=== PATIENT | female | born 2000 | race Caucasian/White ===

== ENCOUNTER 2021-07-29 21:37 | Emergency (ER) | payer MEDICAID ==
[~2021-07-29] VITALS: Ht 152.4 cm; Wt 54.4 kg
[2021-07-29] MEDS ORDERED: CEFTRIAXONE 500 MG VIAL IM ONE (22:00)
[2021-07-29] MEDS ORDERED: DOXYCYCLINE HYCLATE (100 MG) 100 MG TABLET PO ONE (22:00)
--- NOTE | 2021-07-29 22:00 | NUR ---
BIBS FOR C/O POSSIBLE STD. HER PARTNER WAS TESTED + FOR SYPHILIS +DYSURIA. PT A/OX4. TOLERATING R/A WELL WITH NO SOB
--- NOTE | 2021-07-29 22:01 | NUR ---
URINE COLLECTED AND SENT TO LAB
--- NOTE | 2021-07-29 22:03 | NUR ---
LAW VARGAS AT PT'S BEDSIDE
[2021-07-29] MEDS ORDERED: DOXY-326 PO ×2 (22:08→22:10)
[2021-07-29] MEDS ORDERED: CEFTRIAXONE 500 MG VIAL ONE (22:23)
[2021-07-29] MEDS ORDERED: DOXYCYCLINE HYCLATE (100 MG) 100 MG TABLET ONE (22:24)
[2021-07-29] MEDS ORDERED: LIDOCAINE /MPF 1% VIAL 5 ML VIAL ONE (22:25)
--- NOTE | 2021-07-29 22:32 | NUR ---
Patient discharged to home in stable condition. RX Written and verbal after care instructions given. Patient verbalizes understanding of instruction. PT ambulatory with a steady gait.
[2021-07-29 22:33] VITALS: BP 140/87
[2021-07-29 22:36] LABS: BILIRUBIN,URINE SMALL (NEGATIVE); COLOR,URINE YELLOW (YELLOW); LEUKOCYTE ESTERASE ,URINE NEGATIVE (NEGATIVE); NITRITE, URINE NEGATIVE (NEGATIVE); PH,URINE 5.5 (5.0-8.0); PROTEIN,URINE NEGATIVE (NEGATIVE); UGLUCOSE NEGATIVE (NEGATIVE); UROBILINOGEN,URINE 0.2 EU/dL (0.2)
== END 2021-07-29 22:34 | disposition home or self-care (01) ==
LOC: ER 21:40
DX: R30.0 Dysuria (principal); Z79.899 Other long term (current) drug therapy
CPT/HCPCS: 81003; 84703; 87491; 87591; 96372; 99283; J0696; J3490

== ENCOUNTER 2022-02-26 09:12 | Emergency (ER) | payer MEDICAID ==
[~2022-02-26] VITALS: Ht 157.5 cm; Wt 53.5 kg
[~2022-02-26 09:12] MED LIST: DOXY-326 PO
--- NOTE | 2022-02-26 09:24 | NUR ---
BIBS C/O NAUSEA, VOMITING, AND DIARRHEA X3WEEK AND NOTICE BLACK STOOL. PT DENIES ANY PAIN AT THIS TIME. VITALS ARE WITHIN NORMAL LIMITS. CHANGED INTO GOWN. AWAITNG MD ORDERS.
--- NOTE | 2022-02-26 09:46 | NUR ---
IV ESTABLISHED R AC 20G. LABS DRAWN AND COLLECTED AT BEDSIDE
[2022-02-26 10:02] LABS: BASOPHILS % (AUTO) 0.3 % (0.0-2.0); EOSINOPHILS % (AUTO) 1.7 % (0.0-6.0); HEMATOCRIT 42 % (33-45); LYMPHOCYTES # (AUTO) 1.7 K/uL (0.8-4.8); LYMPHOCYTES % (AUTO) 32.1 % (20.0-44.0); MEAN CORPUSCULAR HGB CONC 34 g/dl (31.0-36.0); MEAN CORPUSCULAR VOLUME 87 fL (82-100); MONOCYTES # (AUTO) 0.4 K/uL (0.1-1.30); MONOCYTES % (AUTO) 8.1 % (2.0-12.0); NEUTROPHILS # (AUTO) 3.1 K/uL (1.8-8.9); NEUTROPHILS % (AUTO) 57.8 % (43.0-81.0); PLATELET COUNT (AUTO) 313 K/uL (150-450); WHITE BLOOD COUNT (AUTO) 5.3 K/uL (4.3-11.0)
--- NOTE | 2022-02-26 10:03 | NUR ---
URINE COLLECTED AND SENT
[2022-02-26 10:25] LABS: CALCIUM, SERUM 9.3 mg/dL (8.5-10.1); CREATININE 0.7 mg/dL (0.6-1.3); POTASSIUM 3.7 mmol/L (3.5-5.1)
[2022-02-26 10:31] LABS: BILIRUBIN,DIRECT 0.2 mg/dL (0.0-0.2); BILIRUBIN,TOTAL 0.8 mg/dL (0.2-1.0); TOTAL PROTEIN, SERUM 8.1 g/dL (6.4-8.2)
[2022-02-26 11:34] LABS: BILIRUBIN,URINE NEGATIVE (NEGATIVE); COLOR,URINE YELLOW (YELLOW); LEUKOCYTE ESTERASE ,URINE NEGATIVE (NEGATIVE); NITRITE, URINE NEGATIVE (NEGATIVE); PROTEIN,URINE NEGATIVE (NEGATIVE); UGLUCOSE NEGATIVE (NEGATIVE); UROBILINOGEN,URINE 0.2 EU/dL (0.2)
[2022-02-26] MEDS ORDERED: ONDA4TAB5 PO (12:11)
--- NOTE | 2022-02-26 12:23 | NUR ---
IV removed. Catheter intact and site benign. Pressure and 4x4 applied to site. No bleeding noted.
[2022-02-26 12:24] VITALS: BP 120/76
--- NOTE | 2022-02-26 12:24 | NUR ---
Patient discharged to home in stable condition. Written and verbal after care instructions given. Patient verbalizes understanding of instruction.
[2022-02-26 12:37] LABS: BACTERIA,URINE Moderate /HPF (None Seen); RBC,URINE NONE SEEN /HPF (0-2); SQUAMOUS EPITHELIAL CELL,UR Moderate /HPF (None Seen); WBC,URINE 0-2 /HPF (0-3)
== END 2022-02-26 12:25 | disposition home or self-care (01) ==
LOC: ER 09:15
DX: R11.2 Nausea with vomiting, unspecified (principal); R19.7 Diarrhea, unspecified; Z98.890 Other specified postprocedural states; Z79.899 Other long term (current) drug therapy
CPT/HCPCS: 36415; 80048-TC; 80076-TC; 81001; 83690-TC; 84703-TC; 85025-TC; 87086-TC

== ENCOUNTER 2022-04-15 16:41 | Emergency (ER) | payer MEDICAID ==
[~2022-04-15] VITALS: Ht 152.4 cm; Wt 54.4 kg
[~2022-04-15 16:41] MED LIST changes: +ONDA4TAB5 PO
[2022-04-15 16:53] VITALS: BP 124/64
--- NOTE | 2022-04-15 16:53 | NUR ---
BIBS C/O PERSISTENT HEADACHE SINCE SHE HIT THE BACK OF HER HEAD AGAINST THE CORNER OF A COUCH 2 DAYS AGO
[2022-04-15] MEDS ORDERED: KETOROLAC TROMETHAMINE INJ 60 MG/2 ML VIAL IM ONE (17:30)
[2022-04-15] MEDS ORDERED: ACETAMINOPHEN 325 MG TABLET PO ONE (17:30)
[2022-04-15] MEDS ORDERED: KETOROLAC TROMETHAMINE INJ 30 MG/ML VIAL ONE (17:42)
[2022-04-15] MEDS ORDERED: ACETAMINOPHEN ES 500 MG TABLET ONE (17:42)
[2022-04-15] MEDS ORDERED: KETO10TA2 PO (18:11)
--- NOTE | 2022-04-15 18:30 | NUR ---
Patient discharged to home in stable condition. Written and verbal after care instructions given. Patient verbalizes understanding of instruction.
== END 2022-04-15 18:57 | disposition home or self-care (01) ==
LOC: ER 16:43
DX: G43.909 Migraine, unspecified, not intractable, without status migrainosus (principal); S09.90XA Unspecified injury of head, initial encounter; Z79.899 Other long term (current) drug therapy; W22.8XXA Striking against or struck by other objects, initial encounter; Y93.89 Activity, other specified; Y92.89 Other specified places as the place of occurrence of the external cause; Y99.8 Other external cause status
CPT/HCPCS: 99283; 96372; J1885

== ENCOUNTER 2022-08-13 12:57 | Emergency (ER) | payer MEDICAID ==
[~2022-08-13] VITALS: Ht 152.4 cm; Wt 72.6 kg
[~2022-08-13 12:57] MED LIST changes: +KETO10TA2 PO
[2022-08-13 13:05] VITALS: BP 123/75
--- NOTE | 2022-08-13 14:23 | NUR ---
PT WAS TRIAGED AWAITING BED AVAILABILITY, LEFT W/OUT BEING SEEN BY ERMD.
== END 2022-08-13 14:30 | disposition left against medical advice (07) ==
LOC: ER 12:58
DX: Z53.21 Procedure and treatment not carried out due to patient leaving prior to being seen by health care provider (principal); R11.2 Nausea with vomiting, unspecified

== ENCOUNTER 2022-10-19 07:45 | Emergency (ER) | payer MEDICAID, OTHER ==
[~2022-10-19] VITALS: Ht 152.4 cm; Wt 53.5 kg
[2022-10-19 08:08] VITALS: BP 119/74
[2022-10-19] MEDS ORDERED: IV NS 0.9% 1,000 ML IV ONE (09:00)
[2022-10-19] MEDS ORDERED: diphenhydrAMINE HCL 50 MG/ML VIAL IV ONE (09:00)
[2022-10-19] MEDS ORDERED: KETOROLAC TROMETHAMINE INJ 30 MG/ML VIAL IV ONE (09:00)
[2022-10-19] MEDS ORDERED: METOCLOPRAMIDE HCL 10 MG/2 ML VIAL IV ONE (09:00)
--- NOTE | 2022-10-19 09:16 | NUR ---
Patient does not wish to proceed with medical care recommended by Dr. Odell. Patient given information related to possible complications, up to and including , which could occur as a result of leaving the hospital at this time. Patient verbalizes understanding of risks involved due to leaving against medical advice. Patient refused to signed AMA form.
== END 2022-10-19 09:17 | disposition left against medical advice (07) ==
LOC: ER 07:54
DX: R51.9 Headache, unspecified (principal); Z79.899 Other long term (current) drug therapy

== ENCOUNTER 2023-09-25 15:04 | Emergency (ER) | payer OTHER ==
[~2023-09-25] VITALS: Ht 152.4 cm; Wt 59.0 kg
[2023-09-25 16:02] VITALS: BP 149/73; TEMP 98.6
[2023-09-25] MEDS ORDERED: HYDR-500 PO (16:51)
[2023-09-25] MEDS ORDERED: IBUPROFEN 600 MG TABLET ONE (16:58)
[2023-09-25] MEDS: IBUPROFEN 600 MG TABLET PO ONE (17:01)
[2023-09-25 17:06] VITALS: O2SAT 99
== END 2023-09-25 17:08 | disposition home or self-care (01) ==
LOC: ER 15:25
DX: H01.136 Eczematous dermatitis of left eye, unspecified eyelid (principal); H01.133 Eczematous dermatitis of right eye, unspecified eyelid; G43.909 Migraine, unspecified, not intractable, without status migrainosus; Z73.3 Stress, not elsewhere classified; F41.8 Other specified anxiety disorders

== ENCOUNTER → 2023-10-24 | Emergency (ER) | payer OTHER ==
[~2023-10-24] VITALS: Ht 154.9 cm; Wt 62.6 kg
[~2023-10-24] MED LIST changes: +AMOX500C2 PO; +HYDR-500 PO
[2023-10-24 09:04] VITALS: BP 120/81; TEMP 98.8; O2SAT 100
== END | disposition home or self-care (01) ==
LOC: ER 09:12
DX: H66.91 Otitis media, unspecified, right ear (principal); J04.0 Acute laryngitis; R05.9 Cough, unspecified; R09.81 Nasal congestion

== ENCOUNTER 2024-02-10 08:26 | Emergency (ER) | payer OTHER ==
[~2024-02-10] VITALS: Ht 152.4 cm; Wt 61.2 kg
[2024-02-10 10:05] LABS: PREGNANCY TEST URINE QUAL NEGATIVE (NEGATIVE)
[2024-02-10 10:08] VITALS: BP 122/84; TEMP 98; O2SAT 98
== END 2024-02-10 10:08 | disposition home or self-care (01) ==
LOC: ER 08:31
DX: R51.9 Headache, unspecified (principal); M54.2 Cervicalgia; F14.10 Cocaine abuse, uncomplicated; F32.A Depression, unspecified; Z86.69 Personal history of other diseases of the nervous system and sense organs
CPT/HCPCS: 70450-TC; 84703-TC

== ENCOUNTER 2024-05-15 23:20 | Emergency (ER) | payer OTHER | END 2024-05-16 00:33 | disposition left against medical advice (07) | LOC: ER 23:29 | DX: E86.0 Dehydration (principal); R11.0 Nausea; Z53.21 Procedure and treatment not carried out due to patient leaving prior to being seen by health care provider ==